=== PATIENT | female | born 1945 | race Caucasian/White ===

== ENCOUNTER 2017-12-11 00:55 | Emergency (ER) | payer MEDICARE, OTHER ==
[2017-12-11 01:04] VITALS: BP 185/95; PULSE 84; RESP 16; TEMP 97.7; O2SAT 100
== END 2017-12-11 04:28 | disposition home or self-care (01) ==
LOC: MERGE 00:55 → H.EDERROR 00:55 → H.ER 00:55 → H.EDERROR 04:28
DX: Z02.89 Encounter for other administrative examinations (principal)

== ENCOUNTER 2017-12-11 01:08 | Emergency (ER) | payer MEDICAID ==
[2017-12-11] MEDS ORDERED: Sodium Chloride 0.9% 1,000 ML IV STA (01:28)
[2017-12-11 02:02] LABS: SQUAMOUS EPITHIAL < 1 /hpf (0-5); URINE BACTERIA RARE (<OCC); URINE BILIRUBIN NEGATIVE (NEGATIVE); URINE BLOOD NEGATIVE (NEGATIVE); URINE CLARITY CLOUDY (Clear); URINE COLOR YELLOW (YELLOW); URINE GLUCOSE (UA) NEG (Normal); URINE LEUKOCYTE ESTERASE SMALL Leu/uL (Negative); URINE PROTEIN 100 mg/dL (NEGATIVE); URINE UROBILINOGEN 0.2-1.0 mg/dL (0.2-1.0)
[2017-12-11 02:03] LABS: BASO % 0.7 % (0.0-2.0); EOS # 0.1 K/uL (0.0-0.7); EOS % 0.9 % (0.0-4.0); HEMOGLOBIN 13.1 g/dL (12.0-16.0); LYMPH # 1.7 K/uL (1.0-4.3); LYMPH % 23.2 % (20.0-40.0); MEAN CELL VOLUME 92.4 fl (81.0-99.0); MEAN CORPUSCULAR HEMOGLOBIN 31.7 pg (27.0-31.0); MEAN CORPUSCULAR HGB CONC 34.3 g/dL (33.0-37.0); MEAN PLATELET VOLUME 8.1 fl (7.2-11.7); MONO # 0.4 K/uL (0.0-0.8); MONO % 5.7 % (0.0-10.0); NEUT % 69.5 % (50.0-75.0); RBC 4.13 Mil/uL (3.80-5.20); RED CELL DISTRIBUTION WIDTH 13.3 % (11.5-14.5); WHITE BLOOD COUNT 7.1 K/uL (4.8-10.8)
--- NOTE | 2017-12-11 02:17 | ED PDOC ---
HPI: General Adult Time Seen by Provider: 12/11/17 01:16 Chief Complaint (Nursing): Dizziness/Lightheaded Chief Complaint (Provider): Dizziness/Lightheaded History Per: Patient, Family (daughter) History/Exam Limitations: no limitations Onset/Duration Of Symptoms: Days (x1) Additional History Per: EMS Additional Complaint(s): 87 year old female brought in by daughter with a history of dementia, hypertension, and high cholesterol presents to the ED with nausea and dizziness. As per daughter, patient woke up in the middle of the night with nausea and dizziness and attempted to vomit. EMS reports she was diaphoretic and weak appearing. Family denies recent illness. Patient denies shortness of breath, chest pain or any other medical complaints. PMD: Dr. Grigsby Past Medical History Reviewed: Historical Data, Nursing Documentation, Vital Signs Vital Signs: Last Vital Signs Temp 97.7 F 12/11/17 01:16 Pulse 84 12/11/17 01:16 Resp 16 12/11/17 01:16 BP 185/95 H 12/11/17 01:16 Pulse Ox 100 12/11/17 03:24 - Medical History PMH: Dementia, HTN, Hypercholesterolemia - Family History Family History: States: Unknown Family Hx - Home Medications Home Medications: Ambulatory Orders Medication Instructions Recorded Cefdinir [Omnicef] 300 mg PO BID 5 Days #10 cap 12/11/17 - Allergies Allergies/Adverse Reactions: Allergies Allergy/AdvReac Type Severity Reaction Status Date / Time No Known Allergies Allergy Verified 12/11/17 01:18 Review of Systems Gastrointestinal: Positive for: Nausea Neurological: Positive for: Dizziness Physical Exam - Reviewed Nursing Documentation Reviewed: Yes Vital Signs Reviewed: Yes - Physical Exam Appears: Positive for: Non-toxic, No Acute Distress Head Exam: Positive for: ATRAUMATIC, NORMOCEPHALIC Skin: Positive for: Normal Color, Warm, Dry Eye Exam: Positive for: EOMI, Normal appearance, PERRL Cardiovascular/Chest: Positive for: Regular Rate, Rhythm. Negative for: Murmur Respiratory: Positive for: Normal Breath Sounds. Negative for: Respiratory Distress Gastrointestinal/Abdominal: Positive for: Normal Exam, Soft. Negative for: Tenderness Extremity: Positive for: Normal ROM (upper and lower) Neurologic/Psych: Positive for: Alert, Oriented (x3), Other (reproducible nausea when patient changes positions). Negative for: Motor/Sensory Deficits - Laboratory Results Result Diagrams: 12/11/17 02:01 12/11/17 02:01 - ECG O2 Sat by Pulse Oximetry: 100 (RA) Pulse Ox Interpretation: Normal Medical Decision Making Medical Decision Making: Time: 1:27 Assessment: 87 year old female with a history of dementia, hypertension, and high cholesterol presenting with dizziness and nausea. Patient is comfortable in when lying flat, currently hypertensive, concerned for peripheral vertigo versus electrolyte imbalance, versus intracranial pathology, versus UTI Initial Plan: --CT head w/o contrast --EKG --CMP --Troponin --CBC with differentials --Partial thromboplastin time --Prothrombin time --Chest x-ray --Antivert 50 mg PO --NS --Zofran 4 mg IVP --Urine culture Time: 3:20 Ct head w/o contrast FINDINGS: Brain: No hemorrhage. Moderately extensive periventricular microischemic changes. No edema. Ventricles: Appropriate for patient's age. Bones/joints: No acute fracture. Soft tissues: No radiopaque foreign body. Sinuses: No acute sinusitis. Mastoid air cells: No mastoid effusion. IMPRESSION: No acute CT intracranial abnormalities. Patient has significantly improved. Tolerating PO, no longer dizzy. Vitals improved. Will treat for UTI. Strongly advised followup with Dr. Grigsby on Wednesday. Stable gait, well appearing. Scribe Attestation: Documented by Francheska Rivero, acting as a scribe for Param Prince MD Provider Scribe Attestation: All medical record entries made by the Scribe were at my direction and personally dictated by me. I have reviewed the chart and agree that the record accurately reflects my personal performance of the history, physical exam, medical decision making, and the department course for this patient. I have also personally directed, reviewed, and agree with the discharge instructions and disposition. 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 Prescriptions: Cefdinir [Omnicef] 300 mg PO BID 5 Days #10 cap Instructions: Asymptomatic Bacteriuria, Vertigo (a Type of Dizziness) Forms: [facility] (Grenadian) Print Language: MALTESE
[2017-12-11 02:21] LABS: PARTIAL THROMBOPLASTIN TIME 28.4 Seconds (25.6-37.1)
[2017-12-11 02:23] LABS: ALB/GLOB RATIO 1.3 (1.0-2.1); ALBUMIN 4.4 g/dL (3.5-5.0); ALT/SGPT 28 U/L (9-52); AST/SGOT 25 U/L (14-36); BLOOD UREA NITROGEN 25 mg/dl (7-17); CALCIUM 9.3 mg/dL (8.4-10.2); GFR AFRICAN-AMERICAN > 60; GFR NON-AFRICAN AMERICAN 52
[2017-12-11 06:07] VITALS: BP 155/78; PULSE 88; RESP 18; TEMP 98.2; O2SAT 99
--- NOTE | 2017-12-11 08:36 | CT ---
Date of service: 12/11/2017 PROCEDURE: CT HEAD WITHOUT CONTRAST. HISTORY: nausea, vomiting COMPARISON: None available. TECHNIQUE: Axial computed tomography images were obtained through the head/brain without intravenous contrast. Radiation dose: Total exam DLP = 834.19 mGy-cm. This CT exam was performed using one or more of the following dose reduction techniques: Automated exposure control, adjustment of the mA and/or kV according to patient size, and/or use of iterative reconstruction technique. FINDINGS: HEMORRHAGE: No intracranial hemorrhage. BRAIN: No mass effect or edema. No atrophy or chronic microvascular ischemic changes. VENTRICLES: Unremarkable. No hydrocephalus. CALVARIUM: Unremarkable. PARANASAL SINUSES: Unremarkable as visualized. No significant inflammatory changes. MASTOID AIR CELLS: Unremarkable as visualized. No inflammatory changes. OTHER FINDINGS: None. IMPRESSION: Normal CT of the Head. No intracranial mass, hemorrhage or evidence of acute infarct. The preliminary findings for this examination were reported by [facility] at 3:20 a.m. on 12/11/2017. There is concurrence of this report with the preliminary findings.
--- NOTE | 2017-12-11 13:52 | RAD ---
Date of service: 12/11/2017 PROCEDURE: CHEST RADIOGRAPH, 1 VIEW HISTORY: dizziness, nausea COMPARISON: None available FINDINGS: LUNGS: Clear. PLEURA: No pneumothorax or pleural fluid seen. CARDIOVASCULAR: Normal. OSSEOUS STRUCTURES: No significant abnormalities. VISUALIZED UPPER ABDOMEN: Normal. OTHER FINDINGS: None. IMPRESSION: No active disease.
== END 2017-12-11 05:35 | disposition home or self-care (01) ==
LOC: H.ER 01:08
DX: N39.0 Urinary tract infection, site not specified (principal); F03.90 Unspecified dementia, unspecified severity, without behavioral disturbance, psychotic disturbance, mood disturbance, and anxiety; E78.00 Pure hypercholesterolemia, unspecified; I10 Essential (primary) hypertension
CPT/HCPCS: 70450; 71045; 80053; 81003; 84484; 85025; 85610; 85730; 87040; 96374; 99285; J0696; J2405; J7030